=== PATIENT | female | born 1965 | race Hispanic/Latino ===

== ENCOUNTER 2017-08-08 10:06 | Day surgery (SDC) | payer MEDICAID ==
[2017-08-08] MEDS ORDERED: NACL 0.9% 1000 ML 1,000 ML ONE (12:38)
[2017-08-08] MEDS ORDERED: NACL 0.9% 1000 ML 1,000 ML IV SCH (13:00)
[2017-08-08] MEDS ORDERED: DIPRIVAN 10 MG/ML IV ONE ×2 (15:21)
--- NOTE | 2017-08-08 15:23 | Anesthesia Consultation ---
Anesthesia Consult and Med Hx Date of service: 08/08/17 - Airway Anesthetic Teeth Evaluation: Good ROM Head & Neck: Adequate Mental/Hyoid Distance: Adequate Mallampati Class: Class II Intubation Access Assessment: Probably Good - Pulmonary Exam CTA: Yes - Cardiac Exam Cardiac Exam: RRR - Pre-Operative Health Status ASA Pre-Surgery Classification: ASA2 Proposed Anesthetic Plan: MAC - Pulmonary Hx Smoking: Yes (occasional) - Cardiovascular System Hx Hypertension: Yes - Central Nervous System Hx Seizures: No (migraine) - Hematic Hx Anemia: Yes (RESOLVED) - Other Systems Hx Alcohol Use: Yes (SOCIALLY) Hx Cancer: No - Additional Comments Anesthesia Medical History Comments: NAC
--- NOTE | 2017-08-08 15:24 | Anesthesia Day of Surgery ---
Anesthesia Day of Surgery - Day of Surgery Patient Examined: Yes Patient H&P Reviewed: Yes Patient is NPO: Yes
[2017-08-08] MEDS ORDERED: WATER FOR IRRIG STERILE IR ONE (15:39)
[2017-08-08] MEDS ORDERED: WATER FOR IRRIG STERILE ONE (15:39)
--- NOTE | 2017-08-08 15:56 | Operative Report ---
Operative Report Operative Report: Date of procedure: 08/08/2017 Procedure: Colonoscopy with Hot biopsy Polypectomy. Attending physician: Efrain Darby MD [employer] Manager: Efrain Darby MD Indication: Patient is a 52-year-old female who presents for screening colonoscopy. Patient reportedly has underlying past history of Crohn's disease. It appears she does have diarrhea episodically but has not had 2 at this time. A colonoscopy service to evaluate patient for colorectal cancer screening. Consent: Informed consent was obtained after advising the patient and family regarding nature of this procedure, its indications, potential benefits as well as possible complications including but not limited to bleeding perforation and adverse reaction to medication, infection as well as other cardiopulmonary complications. An informed written and verbal consent was then obtained after due opportunity was provided for questions and answers. Monitoring: Patient was monitored continuously with pulse oximetry and electrocardiographic recordings as well as blood pressure recordings. Vital signs remained stable throughout this procedure with no untoward events. Preoperative assessment: Patient was assessed immediately prior to this procedure for capacity to tolerate monitored anesthesia care and moderate sedation as well as general anesthesia. Patient's ASA classification is 2, Mallampati class is 2, Hyomental distance is 3. Instrument: deltamethod video colonoscope Medications: Propofol given intravenously in divided doses. For details please refer to anesthesia records. Description of procedure: Patient was placed in the left lateral decubitus position after achieving sedation, a digital rectal examination was performed following which the colonoscope was introduced into the anal verge and advanced to the cecum which was identified by the cecal valve, the appendiceal orifice, as well as by the cecal strap and direct transillumination. The colonoscope was subsequently withdrawn with careful inspection of all mucosal surfaces. Patient tolerated this procedure well and was subsequently taken to the recovery room. The following findings were noted. Findings: There were diverticula in the sigmoid colon, descending colon and ascending colon. There was a diminutive 5mm sigmoid colon polyp which was removed by hot biopsy polypectomy and retrieved. There was no evidence of Crohn 's disease or colitis. The rest of the colon was normal. On the retroflex view at the anal verge, patient had internal hemorrhoids. Impression: Diminutive sigmoid colon polyp status post hot biopsy polypectomy. Diverticular disease of the colon Internal hemorrhoids. Plan: High-fiber diet. Repeat colonoscopy in 5 years, if polyp is adenomatous.
--- NOTE | 2017-08-08 15:57 | Discharge Summary ---
Short Stay Discharge Plan Activity: advance as tolerated Weight Bearing Status: Weight Bear as Tolerated Diet: regular
[2017-08-08 16:33] VITALS: BP 128/90
--- NOTE | 2017-08-08 20:28 | Post Anesthesia Evaluation ---
- Post Anesthesia Evaluation Patient Participated: Yes Airway Patent: Yes Stable Respiratory Function: Yes Nausea/Vomiting: No Temp > 96.8F: Yes Pain Manageable: Yes Adequeate Hydration: Yes Anesthesia Complications: No Block Receding Appropriately: Not Applicable Patient on Ventilator: No
== END 2017-08-08 10:07 | disposition home or self-care (01) ==
LOC: GIO 10:06
PROVIDERS: ATTEND Internal Medicine Gastroenterology
DX: Z12.11 Encounter for screening for malignant neoplasm of colon (principal); K63.5 Polyp of colon; K57.30 Diverticulosis of large intestine without perforation or abscess without bleeding; K50.90 Crohn's disease, unspecified, without complications; K21.9 Gastro-esophageal reflux disease without esophagitis; I10 Essential (primary) hypertension; F17.210 Nicotine dependence, cigarettes, uncomplicated
CPT/HCPCS: 45384; 88305; J2704; J7030

== ENCOUNTER 2021-05-05 12:52 | Outpatient (CLI) | payer MEDICAID ==
--- NOTE | 2021-05-05 14:01 | XRay Report ---
XR ankle 3+V RT INDICATION / CLINICAL INFORMATION: RIGHT ANKLE PAIN. COMPARISON: None available. FINDINGS: BONES/JOINT(S): No acute fracture or subluxation. No significant degenerative changes. SOFT TISSUES: No significant abnormality. ADDITIONAL FINDINGS: None. Signer Name: Gus Lujan MD Signed: 05/05/2021 1:56 PM Workstation Name: [id number]
== END 2021-05-05 12:53 | disposition home or self-care (01) ==
LOC: SPVIMAG 12:52
PROVIDERS: ATTEND Urology
DX: M25.571 Pain in right ankle and joints of right foot (principal)